=== PATIENT | male | born 1970 | race Caucasian/White ===

== ENCOUNTER 2017-07-03 10:52 | Emergency (ER) | payer OTHER ==
[~2017-07-03] VITALS: Ht 180.3 cm; Wt 79.4 kg
[2017-07-03 11:00] VITALS: BP 135/81
--- NOTE | 2017-07-03 11:32 | PHYS DOC ---
Past History Past Medical History: No Pertinent History Past Surgical History: No Surgical History Alcohol Use: Rarely Drug Use: None Adult General Chief Complaint Chief Complaint: fall and right elbow pain HPI HPI 47-year-old male presenting to the emergency department today with a fall. He reports being up rectally 4 feet up a ladder when he fell and landed on his right elbow. He denies head injury or loss of consciousness. He denies any other injuries. His pain in his elbow is moderate sharp intermittent and without alleviating or exacerbating factors. He did sustain laceration to his skin as well. Review of systems is negative for headache nausea vomiting chest pain shortness of breath abdominal pain numbness weakness or tingling. All other review of systems is negative unless otherwise noted in history of present illness. ED course: 47-year-old male presenting to the emergency department with right elbow pain after falling from a ladder about 4 feet. Pertinent physical examination findings show the elbow to have sustained a small stellate lacerations to the elbow. No foreign bodies present. Neurovascularly intact. No tenderness to palpation in the anatomical snuff box. No swelling in the wrist. No ecchymosis. 2 second cap refill distally. Patient demonstrates the ability to make an "A OK", cross their fingers, and give a thumbs up. Sensory function of the radial, ulnar, and median nerve are intact. The wound was washed out with soap and water along with sterile saline. The patient's laceration was loosely reapproximated with 2 sutures. X-rays were obtained which were unremarkable. The patient was then subsequently discharged home to follow-up with his pcp. On inspection of the wound it does not appear that the patient has sustained an open arthrotomy. I had a long discussion with the patient about early return precautions and signs of infection. The patient was then discharged home in stable condition to follow up with their primary care physician over the next 5-7 days for suture removal. They were to return if their symptoms worsened or if they were concerned for any reason. [id number] discharge instructions and return precautions were given. Patient's questions were answered to their satisfaction. Patient is comfortable plan. Review of Systems Review of Systems SEE ABOVE. Family History Family History V Current Medications Current Medications Current Medications Medications (Trade) Dose Ordered Sig/Debi Start Time Stop Time Status Last Admin Dose Admin Diphtheria/ Tetanus/Acell Pertussis (Boostrix) 0.5 ml ONCE ONCE 07/03/17 11:15 07/03/17 11:16 UNV Physical Exam Physical Exam Constitutional: Well developed, well nourished, no acute distress, non-toxic appearance. [] HENT: Normocephalic, atraumatic, bilateral external ears normal, oropharynx moist, no oral exudates, nose normal. [] No evidence of abrasions lacerations or ecchymosis to the head or neck. No step-offs. No pain in the neck midline. Eyes: PERRLA, EOMI, conjunctiva normal, no discharge. [] Neck: Normal range of motion, no tenderness, supple, no stridor. [] Cardiovascular:Heart rate regular rhythm, no murmur [] Lungs & Thorax: Bilateral breath sounds clear to auscultation [] Abdomen: Bowel sounds normal, soft, no tenderness, no masses, no pulsatile masses. [] Skin: Warm, dry, no erythema, no rash. [] Back: No tenderness, no CVA tenderness. [] Extremities: See above. Neurologic: Alert and oriented X 3, normal motor function, normal sensory function, no focal deficits noted. [] Psychologic: Affect normal, judgement normal, mood normal. [] EKG EKG [] Radiology/Procedures Radiology/Procedures [] Course & Med Decision Making Course & Med Decision Making Pertinent Labs and Imaging studies reviewed. (See chart for details) [] Dragon Disclaimer Dragon Disclaimer This chart was dictated in whole or in part using Voice Recognition software in a busy, high-work load, and often noisy Emergency Department environment. It may contain unintended and wholly unrecognized errors or omissions. Departure Departure: Impression: Primary Impression: Right elbow pain Additional Impressions: Fall Laceration Disposition: 01 HOME, SELF-CARE Condition: STABLE Referrals: ANTONINO HERNANDEZ (PCP) Patient Instructions: Laceration Care, Adult Additional Instructions: Thank you for allowing us to participate in your care today. Followup with your primary care physician in 7 to 10 days for suture removal. Call your Primary Doctor tomorrow and inform them of your visit today. If you do not have a primary care provider you can ask for a list of our primary care providers. Return to the emergency department you have any new or concerning findings. This should be evaluated by the primary care physician and any necessary consulting services for continued management within a few days after discharge. Return to emergency room if you have any new or concerning symptoms including but not limited to fever, chills, nausea, vomiting, intractable pain, any new rashes, chest pain, shortness of air, uncontrolled bleeding, difficulty breathing, and/or vision loss. Laceration Repair Lac Repair Indication: []right elbow laceration Procedure: The patient is placed in appropriate position. 1% buffered lidocaine was used around the wounds. The area was cleansed with approximately 500 mL of sterile saline and washed with soapy water. Laceration was then loosely closed together using one nonabsorbable stitch for 2 separate stellate lacerations. The wound was then dressed with nonadherent dressing. Total repaired wound length: Laceration #1 was 1.5 cm. Laceration #2 was 0.6 cm. The patient tolerated the procedure well without any complications. Problem Qualifiers MACY MARISCAL MD Jul 03, 2017 11:32
[2017-07-03] MEDS ORDERED: DIPHTH,PERTUSS(ACELL),TET TOX 0.5 ML DISP.SYRIN. VAX IM ONE (12:00)
--- NOTE | 2017-07-03 12:12 | RAD ---
Indication pain associated with a fall. AP oblique and lateral views of the right elbow were obtained. Total of 4 views were obtained. No bony abnormality is seen
[2017-07-03] MEDS ORDERED: LIDOCAINE WITH 8.4% SOD BICARB 3 ML DISP.SYRIN. IJ ONE (12:30)
== END 2017-07-03 13:03 | disposition home or self-care (01) ==
LOC: ER 10:52
DX: S51.011A Laceration without foreign body of right elbow, initial encounter (principal); M25.521 Pain in right elbow; W11.XXXA Fall on and from ladder, initial encounter; Y93.89 Activity, other specified; Y99.8 Other external cause status; Y92.89 Other specified places as the place of occurrence of the external cause
CPT/HCPCS: 12001; 73080; 90471; 90715; 99284-25

== ENCOUNTER 2017-07-05 21:52 | Emergency (ER) | payer OTHER ==
[2017-07-05 22:00] VITALS: BP 150/106
[2017-07-05] MEDS ORDERED: SMZ/TMP 800/160MG TABLET. PO ONE (22:30)
[2017-07-05] MEDS ORDERED: NEOMY/BACITR/POLYMYXIN OINT PACKET. TP ONE (22:30)
[2017-07-05] MEDS ORDERED: CEPHALEXIN 250 MG CAPSULE PO ONE (22:30)
[2017-07-05] MEDS ORDERED: SULF1TAB24 PO (22:48)
[2017-07-05] MEDS ORDERED: CEPH-264 PO (22:48)
--- NOTE | 2017-07-05 22:48 | PHYS DOC ---
Past History Past Medical History: No Pertinent History Past Surgical History: No Surgical History Alcohol Use: Rarely Drug Use: None Adult General Chief Complaint Chief Complaint: ELBOW PROBLEM HPI HPI Patient is a 47 year old male who presents with complaint this to the right elbow. The patient was seen 2 days ago in the emergency department after suffering a fall and sustaining a laceration injury to the right elbow. This was cleaned and repaired in the emergency department. Patient states that over the past 24 hours he has noticed worsening redness and swelling. Patient has had drainage from the wound which has been mostly clear but has had yellowish drainage form over the wound bed itself. The patient is not currently on any antibiotic therapy. Patient's tetanus status is up-to-date. Patient has had no fevers. Patient states he still has full range of motion in the right elbow. Patient states that he is feeling tightness but no severe sharp pain in the elbow. Review of Systems Review of Systems Constitutional: Denies fever or chills [] Eyes: Denies change in visual acuity, redness, or eye pain [] HENT: Denies nasal congestion or sore throat [] Respiratory: Denies cough or shortness of breath [] Cardiovascular: Denies chest pain or edema [] GI: Denies abdominal pain, nausea, vomiting, bloody stools or diarrhea [] : Denies dysuria or hematuria [] Musculoskeletal: Redness and swelling to right elbow [] Integument: Denies rash or skin lesions [] Neurologic: Denies headache, focal weakness or sensory changes [] Endocrine: Denies polyuria or polydipsia [] Current Medications Current Medications Current Medications Medications (Trade) Dose Ordered Sig/Debi Start Time Stop Time Status Last Admin Dose Admin Cephalexin HCl (Keflex) 500 mg 1X ONCE 07/05/17 22:30 07/05/17 22:41 DC 07/05/17 22:30 500 MG Neomycin/ Polymyxin/ Bacitracin (Triple Antibiotic Ointment) 1 pkt 1X ONCE 07/05/17 22:30 07/05/17 22:41 DC 07/05/17 22:30 1 PKT Trimethoprim/ Sulfamethoxazole (Bactrim Ds) 1 tab 1X ONCE 07/05/17 22:30 07/05/17 22:41 DC 07/05/17 22:30 1 TAB Allergies Allergies Allergies Coded Allergies Type Severity Reaction Last Updated Verified aspirin Allergy Severe Anaphylaxis 07/03/17 Yes Physical Exam Physical Exam Constitutional: Alert, afebrile, no acute distress. [] HENT: Normocephalic, atraumatic, bilateral external ears normal, oropharynx moist, no oral exudates, nose normal. [] Eyes: PERRLA, EOMI, conjunctiva normal, no discharge. [] Neck: Normal range of motion, no tenderness, supple, no stridor. [] Cardiovascular:Heart rate regular rhythm, no murmur [] Lungs & Thorax: Bilateral breath sounds clear to auscultation [] Abdomen: Bowel sounds normal, soft, no tenderness, no masses, no pulsatile masses. [] Skin: Warm, dry, erythema and moderate swelling of right posterior elbow extending to the lower third of the right upper arm as well as the upper third of the right forearm, skin sloughing present over stellate sutured wound overlying olecranon. [] Back: No tenderness, no CVA tenderness. [] Extremities: No tenderness, no cyanosis, no clubbing, ROM intact, no edema. [] Neurologic: Alert and oriented X 3, normal motor function, normal sensory function, no focal deficits noted. [] Current Patient Data Vital Signs Vital signs were reviewed and were stable Lab Results None performed EKG EKG Not performed [] Radiology/Procedures Radiology/Procedures Not performed [] Course & Med Decision Making Course & Med Decision Making Pertinent Labs and Imaging studies reviewed. (See chart for details) The patient's wound was cleansed with hydrogen peroxide and normal saline. Devitalized tissue was provided from the wound. The wound was dressed with antibiotic ointment, Telfa, and gauze. Patient was started on Keflex and Bactrim in the emergency department. The patient was written for prescriptions to continue on outpatient treatment with Bactrim and Keflex. Advise follow-up with patient's primary doctor in 2 days for reevaluation. Advised return emergency department for any worsening symptoms. Patient was understanding and in agreement with treatment plan. Dragon Disclaimer Dragon Disclaimer This chart was dictated in whole or in part using Voice Recognition software in a busy, high-work load, and often noisy Emergency Department environment. It may contain unintended and wholly unrecognized errors or omissions. Departure Departure: Impression: Primary Impression: Cellulitis of right elbow Additional Impression: Wound infection Disposition: HOME, SELF-CARE Condition: STABLE Referrals: ANTONINO HERNANDEZ (PCP) Patient Instructions: Cellulitis, Wound Infection Additional Instructions: Follow-up in 2 days with your primary care provider for reevaluation. Return to the emergency department for any worsening symptoms. Scripts Cephalexin (KEFLEX) 500 Mg Capsule 1 CAP PO TID, #30 CAP Prov: POLLY MAYS MD 07/05/17 Sulfamethoxazole/Trimethoprim (BACTRIM DS TABLET) 1 Each Tablet 1 TAB PO BID, #20 TAB Prov: POLLY MAYS MD 07/05/17 Problem Qualifiers POLLY MAYS MD Jul 05, 2017 22:48
== END 2017-07-05 22:55 | disposition home or self-care (01) ==
LOC: ER 21:52
DX: L03.113 Cellulitis of right upper limb (principal); T81.4XXA Infection following a procedure, initial encounter; Z88.6 Allergy status to analgesic agent
CPT/HCPCS: 99284

== ENCOUNTER 2018-01-30 03:19 | Emergency (ER) | payer OTHER ==
[~2018-01-30] VITALS: Ht 180.3 cm; Wt 83.0 kg
[~2018-01-30 03:19] MED LIST: CEPH-264 PO; SULF1TAB24 PO
[2018-01-30 03:25] VITALS: BP 143/102
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
[2018-01-30] MEDS ORDERED: ACETAMINOPHEN 500 MG TABLET PO ONE (04:15)
--- NOTE | 2018-01-30 07:16 | RAD ---
Three-view right wrist study History: Injury with pain Findings: No acute fracture or dislocation or osteolytic process is seen. IMPRESSION: No acute osseous abnormality.
== END 2018-01-30 04:19 | disposition home or self-care (01) ==
LOC: ER 03:19
DX: S66.911A Strain of unspecified muscle, fascia and tendon at wrist and hand level, right hand, initial encounter (principal); Z88.6 Allergy status to analgesic agent; W22.8XXA Striking against or struck by other objects, initial encounter; Y93.89 Activity, other specified; Y99.8 Other external cause status; Y92.89 Other specified places as the place of occurrence of the external cause
CPT/HCPCS: 29125; 73110; 99284

== ENCOUNTER 2018-08-15 05:02 | Emergency (ER) | payer OTHER ==
[~2018-08-15] VITALS: Ht 177.8 cm; Wt 84.4 kg
[2018-08-15 05:11] VITALS: BP 156/94
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
== END 2018-08-15 05:33 | disposition home or self-care (01) ==
LOC: ER 05:02
DX: S05.12XA Contusion of eyeball and orbital tissues, left eye, initial encounter (principal); F17.210 Nicotine dependence, cigarettes, uncomplicated; Z88.6 Allergy status to analgesic agent; V29.9XXA Motorcycle rider (driver) (passenger) injured in unspecified traffic accident, initial encounter; Y93.89 Activity, other specified; Y92.488 Other paved roadways as the place of occurrence of the external cause; Y99.8 Other external cause status
CPT/HCPCS: 99282

== ENCOUNTER 2018-12-14 03:28 | Emergency (ER) | payer OTHER ==
[~2018-12-14] VITALS: Ht 180.3 cm; Wt 77.1 kg
[2018-12-14] MEDS ORDERED: KETOROLAC 15 MG/ML VIAL. ONE (03:49)
--- NOTE | 2018-12-14 04:22 | RAD ---
INDICATION: Headache, double vision tonight COMPARISON: None. TECHNIQUE: Axial CT images obtained through the head without intravenous contrast. One or more of the following individualized dose reduction techniques were utilized for this examination: 1. Automated exposure control; 2. Adjustment of the mA and/or kV according to patient size; 3. Use of iterative reconstruction technique. FINDINGS: No intracranial hemorrhage. No midline shift. Basal cisterns patent. Ventricles and sulci are unremarkable. Bowing of nasal septum. Orbits and paranasal sinuses unremarkable. IMPRESSION: 1. No acute intracranial hemorrhage. Electronically signed by: Mark Colin MD (12/14/2018 4:18 AM) [facility]
[2018-12-14 04:26] LABS: BASO # 0.1 x10^3/uL (0.0-0.2); BASO % 1 % (0-3); EOS # 0.1 x10^3/uL (0.0-0.7); EOS % 1 % (0-3); HEMATOCRIT 48.4 % (39.0-53.0); HEMOGLOBIN 16.3 g/dL (13.0-17.5); LYMPH # 2.7 x10^3/uL (1.0-4.8); LYMPH % 25 % (24-48); MEAN CORPUSCULAR HEMOGLOBIN 33 pg (25-35); MEAN CORPUSCULAR HGB CONC 34 g/dL (31-37); MEAN CORPUSCULAR VOLUME 97 fL (79-100); MONO # 0.7 x10^3/uL (0.0-1.1); MONO % 7 % (0-9); NEUT % 66 % (31-73); PLATELET COUNT 247 x10^3/uL (140-400); RED BLOOD COUNT 4.99 x10^6/uL (4.30-5.70); RED CELL DISTRIBUTION WIDTH 12.7 % (11.5-14.5); WHITE BLOOD COUNT 10.7 x10^3/uL (4.0-11.0)
[2018-12-14] MEDS ORDERED: IV NORMAL SALINE 1,000ML 1,000 ML IV ONE (04:30)
[2018-12-14] MEDS ORDERED: KETOROLAC 15 MG/ML VIAL. IV ONE (04:30)
--- NOTE | 2018-12-14 04:41 | EKG ---
[address] [address] Test Date: 2018-12-14 Test Time: 04:31:03 Pat Name: SOLANGE LUCERO Department: Room: Gender: M Residential Team Leader: : 1970 Requested By: SAMANTHA FLORES Order Number: [id number] Reading MD: Measurements Intervals [place] Rate: 72 P: 41 NE: 136 QRS: 70 QRSD: 82 T: 63 QT: 364 QTc: 400 Interpretive Statements SINUS RHYTHM NO SPECIFIC ECG ABNORMALITIES RI6.01 Unconfirmed report No previous ECG available for comparison
[2018-12-14] MEDS ORDERED: BUTA1TAB23 PO (04:45)
--- NOTE | 2018-12-14 04:46 | PHYS DOC ---
Past History Past Medical History: No Pertinent History Past Surgical History: No Surgical History Smoking: Cigarettes Additional Smoking Information: 1 PPD Alcohol Use: Heavy Drug Use: None Adult General Chief Complaint Chief Complaint: HEADACHE HPI HPI 48-year-old male presents with report of sudden sensation to left of some blurry vision which started approximately 30 minutes ago. Reports symptoms have since resolved except for some "hazy sensation". Patient reports he has had a history of prior migraines. Denies symptoms being similar today. Denies fever or chills. Denies neck pain. Denies known trauma. Patient reports blood pressure was obtained and 140s over 80s. Review of Systems Review of Systems Constitutional: Denies fever or chills [] Eyes: Reports change in visual acuity; denies redness or eye pain [] HENT: Denies nasal congestion or sore throat [] Respiratory: Denies cough or shortness of breath [] Cardiovascular: Denies chest pain or palpitations GI: Denies abdominal pain, nausea, vomiting, or diarrhea [] : Denies dysuria or hematuria [] Musculoskeletal: Denies back pain or joint pain [] Integument: Denies rash or skin lesions [] Neurologic: Reports headache; denies focal weakness or sensory changes [] Complete systems were reviewed and found to be within normal limits, except as documented in this note. Current Medications Current Medications Current Medications Medications (Trade) Dose Ordered Sig/Debi Start Time Stop Time Status Last Admin Dose Admin Ketorolac Tromethamine (Toradol 15mg Vial) 15 mg 1X ONCE 12/14/18 04:30 12/14/18 04:31 DC 12/14/18 04:12 15 MG Sodium Chloride 1,000 ml @ 1,000 mls/hr 1X ONCE 12/14/18 04:30 12/14/18 05:29 12/14/18 04:12 1,000 MLS/HR Allergies Allergies Allergies Coded Allergies Type Severity Reaction Last Updated Verified aspirin Allergy Severe Anaphylaxis 07/03/17 Yes Physical Exam Physical Exam Constitutional: Well developed, well nourished, no acute distress, non-toxic appearance. [] HENT: Normocephalic, atraumatic, bilateral TMs normal, oropharynx moist Eyes: PERRL, EOMI, conjunctiva normal, no discharge. [] Neck: Normal range of motion, no tenderness, supple, no meningeal signs] Cardiovascular: Heart rate regular rhythm, no murmur [] Lungs & Thorax: Bilateral breath sounds clear to auscultation [] Abdomen: Soft, no tenderness Skin: Warm, dry, no erythema, no rash. [] Extremities: No tenderness, ROM intact, no edema. [] Neurologic: Alert and oriented X 3, normal motor function, normal sensory function, no focal deficits noted. [] Psychologic: Affect normal, judgement normal, mood normal. [] Current Patient Data Vital Signs Vital Signs Date Time Temp Pulse Resp B/P (MAP) Pulse Ox O2 Delivery O2 Flow Rate FiO2 12/14/18 03:47 98.1 86 20 98 Room Air Lab Results Laboratory Tests Test 12/14/18 04:05 White Blood Count 10.7 x10^3/uL (4.0-11.0) Red Blood Count 4.99 x10^6/uL (4.30-5.70) Hemoglobin 16.3 g/dL (13.0-17.5) Hematocrit 48.4 % (39.0-53.0) Mean Corpuscular Volume 97 fL (79-100) Mean Corpuscular Hemoglobin 33 pg (25-35) Mean Corpuscular Hemoglobin Concent 34 g/dL (31-37) Red Cell Distribution Width 12.7 % (11.5-14.5) Platelet Count 247 x10^3/uL (140-400) Neutrophils (%) (Auto) 66 % (31-73) Lymphocytes (%) (Auto) 25 % (24-48) Monocytes (%) (Auto) 7 % (0-9) Eosinophils (%) (Auto) 1 % (0-3) Basophils (%) (Auto) 1 % (0-3) Neutrophils # (Auto) 7.0 x10^3uL (1.8-7.7) Lymphocytes # (Auto) 2.7 x10^3/uL (1.0-4.8) Monocytes # (Auto) 0.7 x10^3/uL (0.0-1.1) Eosinophils # (Auto) 0.1 x10^3/uL (0.0-0.7) Basophils # (Auto) 0.1 x10^3/uL (0.0-0.2) EKG EKG @0431 NSR at 72bpm, NO ST elevation Radiology/Procedures Radiology/Procedures PROCEDURE: CT HEAD WO CONTRAST INDICATION: Headache, double vision tonight COMPARISON: None. TECHNIQUE: Axial CT images obtained through the head without intravenous contrast. One or more of the following individualized dose reduction techniques were utilized for this examination: 1. Automated exposure control; 2. Adjustment of the mA and/or kV according to patient size; 3. Use of iterative reconstruction technique. FINDINGS: No intracranial hemorrhage. No midline shift. Basal cisterns patent. Ventricles and sulci are unremarkable. Bowing of nasal septum. Orbits and paranasal sinuses unremarkable. IMPRESSION: 1. No acute intracranial hemorrhage. Electronically signed by: Mark Colin MD (12/14/2018 4:18 AM) [facility] Course & Med Decision Making Course & Med Decision Making Pertinent Labs and Imaging studies reviewed. (See chart for details) Patient presents with report of sudden blurry vision which is now resolved. Patient now reports a "fogginess around his head ". Denies known trauma. Denies chest pain. Patient also concerned due to elevated blood pressure of 140s over 80s. Patient neurologically intact. NIHSS 0. EKG stable. Labs obtained and posted to chart. No signs of and organ damage noted. Symptomatic treatment provided. Patient stable for discharge with outpatient follow-up with PCP. Discussed findings and plan with patient, who acknowledges understanding and agreement. Dragon Disclaimer Dragon Disclaimer This electronic medical record was generated, in whole or in part, using a voice recognition dictation system. Departure Departure: Impression: Primary Impression: Headache Disposition: 01 HOME, SELF-CARE Condition: STABLE Referrals: ANTONINO HERNANDEZ (PCP) Patient Instructions: Migraine Headache, [id number] Scripts Butalb/Acetaminophen/Caffeine ([id number] [id number]) 1 Each Tablet 1 EACH PO Q6HRS PRN for HEADACHE, #14 TAB Prov: FLOERSSAMANTHA MILES Hans STACY 12/14/18 NIHSS - ED NIH Stroke Scale: NIH Stroke Scale Response (Comments) Value Level of Consciousness: 0 Alert/Responsive 0 LOC Questions: 0 Answers both correctly 0 LOC Commands: 0 Performs both tasks 0 Best Gaze: 0 Normal 0 Visual: 0 No visual loss 0 Facial Palsy: 0 Normal, symmetrical 0 Motor - Left Arm 0 No drift 0 Motor - Right Arm 0 No drift 0 Motor - Left Leg 0 No drift 0 Motor: Right Leg 0 No drift 0 Limb Ataxia: 0 Absent 0 Sensory: 0 No loss 0 Best Language: 0 Normal 0 Dysathria: 0 Normal 0 Extinction and Inattention: 0 Normal 0 Total 0 Problem Qualifiers Primary Impression: Headache Headache type: unspecified Headache chronicity pattern: acute headache Intractability: not intractable Qualified Codes: R51 - Headache SAMANTHA FLORES DO Dec 14, 2018 04:46
[2018-12-14 04:49] LABS: ALBUMIN 3.7 g/dL (3.4-5.0); ALBUMIN/GLOBULIN RATIO 1.1 (1.0-1.7); CALCIUM 8.8 mg/dL (8.5-10.1); CREATININE 1.1 mg/dL (0.7-1.3); GFR 71.8; POTASSIUM 3.7 mmol/L (3.5-5.1); TOTAL BILIRUBIN 0.2 mg/dL (0.2-1.0); TOTAL PROTEIN 7.2 g/dL (6.4-8.2)
[2018-12-14 05:00] VITALS: BP 119/66
== END 2018-12-14 05:13 | disposition home or self-care (01) ==
LOC: ER 03:28
DX: R51 Headache (principal); H53.2 Diplopia; F17.210 Nicotine dependence, cigarettes, uncomplicated; F10.20 Alcohol dependence, uncomplicated; Z88.6 Allergy status to analgesic agent; Y90.9 Presence of alcohol in blood, level not specified
CPT/HCPCS: 36415; 70450; 80053; 82553; 83735; 84484; 85025; 93005; 96374; 99284; J1885; J7030